=== PATIENT | male | born 1990 | race Caucasian/White ===

== ENCOUNTER 2022-11-08 09:53 | Emergency (ER) | payer OTHER ==
[~2022-11-08] VITALS: Ht 177.8 cm; Wt 63.0 kg
[2022-11-08] MEDS ORDERED: IV NS 0.9% 500 ML BAG IV ONE (10:30)
[2022-11-08 10:45] LABS: ALANINE AMINOTRANSFERASE 53 U/L (12-78); ALKALINE PHOSPHATASE 74 U/L (46-116); ASPARTATE AMINOTRANSFERASE 33 U/L (15-37); BILIRUBIN,DIRECT 0.2 mg/dL (0.0-0.2); BILIRUBIN,TOTAL 0.4 mg/dL (0.2-1.0); CALCIUM, SERUM 8.7 mg/dL (8.5-10.1); CARBON DIOXIDE 28 mmol/L (21-32); CHLORIDE 103 mmol/L (98-107); CREATININE 0.8 mg/dL (0.6-1.3); GLUCOSE 98 mg/dL (74-106); POTASSIUM 3.9 mmol/L (3.5-5.1); SODIUM SERUM 139 mmol/L (136-145); TOTAL PROTEIN, SERUM 7.7 g/dL (6.4-8.2); UREA NITROGEN, BLOOD 11 mg/dL (7-18)
[2022-11-08 10:48] LABS: ALCOHOL, BLOOD < 3 mg/dL (0-10); HEMOGLOBIN 12.6 g/dL (13.5-17.5)
[2022-11-08 10:51] LABS: BASOPHILS % (AUTO) 0.4 % (0.0-2.0); EOSINOPHILS % (AUTO) 0.2 % (0.0-6.0); HEMATOCRIT 38 % (39-51); LYMPHOCYTES # (AUTO) 1.1 K/uL (0.8-4.8); LYMPHOCYTES % (AUTO) 19.5 % (20.0-44.0); MEAN CORPUSCULAR HEMOGLOBIN 30 PG (26.0-33.0); MEAN CORPUSCULAR HGB CONC 33 g/dl (31.0-36.0); MEAN CORPUSCULAR VOLUME 90 fL (80-96); MONOCYTES # (AUTO) 0.1 K/uL (0.1-1.30); MONOCYTES % (AUTO) 2.4 % (2.0-12.0); NEUTROPHILS # (AUTO) 4.4 K/uL (1.8-8.9); NEUTROPHILS % (AUTO) 77.5 % (43.0-81.0); PLATELET COUNT (AUTO) 400 K/uL (150-450); RED BLOOD CELL COUNT(AUTO) 4.17 MIL/uL (4.5-6.0); RED CELL DISTRIBUTION WIDTH 13.8 % (11.5-15.0); WHITE BLOOD COUNT (AUTO) 5.7 K/uL (4.3-11.0)
[2022-11-08] MEDS ORDERED: LEVETIRACETAM (500MG) 500 MG in IV NS 0.9% 100 ML IV SCH (11:00)
[2022-11-08 13:23] VITALS: BP 112/53; TEMP 98; O2SAT 99
[2022-11-08 18:31] LABS: BARBITURATE, URINE NEGATIVE (NEGATIVE); CANNABINOID, URINE NEGATIVE (NEGATIVE); COCCAINE, URINE NEGATIVE (NEGATIVE); OPIATE, URINE NEGATIVE (NEGATIVE); PHENCYCLIDINE SCREEN,URINE NEGATIVE (NEGATIVE)
[2022-11-08 18:38] LABS: AMPHETAMINE, URINE POSITIVE (NEGATIVE); BENZODIAZEPINE, URINE POSITIVE (NEGATIVE)
== END 2022-11-08 13:23 ==
LOC: ER 10:31
DX: G40.909 Epilepsy, unspecified, not intractable, without status epilepticus (principal)
CPT/HCPCS: 99285; 96365; 96361; 70450; 85025; 80048; 80076; 36415; 80320; 80307; J7030; A4223; J1953; G0480

== ENCOUNTER 2022-11-08 14:07 | Inpatient (IN) | payer MEDICAID, OTHER ==
[~2022-11-08] VITALS: Ht 177.8 cm; Wt 63.0 kg
[2022-11-08] MEDS ORDERED: LORAZEPAM INJ 2 MG/ML VIAL ONE (15:25)
[2022-11-08 15:28] LABS: THYROID STIMULATING HORMONE 0.217 uIU/mL (0.358-3.74)
[2022-11-08 15:34] LABS: PHOSPHORUS 3.3 mg/dL (2.5-4.9)
[2022-11-08 15:35] LABS: MAGNESIUM 2.1 mg/dL (1.8-2.4)
[2022-11-08] MEDS ORDERED: HYDROCODONE/APAP 5/325MG TABLET PO PRN (16:00)
[2022-11-08] MEDS ORDERED: TEMAZEPAM 15 MG CAPSULE PO PRN (16:00)
[2022-11-08] MEDS ORDERED: ONDANSETRON HCL/PF 4 MG/2 ML VIAL IVP PRN (16:00)
[2022-11-08] MEDS ORDERED: ACETAMINOPHEN 325 MG TABLET PO PRN (16:00)
[2022-11-08] MEDS ORDERED: MAGNESIUM HYDROXIDE 30 ML UDC PO PRN (16:00)
[2022-11-08] MEDS ORDERED: HYDROCODONE/APAP 10/325MG TABLET PO PRN (16:00)
[2022-11-08] MEDS ORDERED: Z GUARD REMEDY 4 OZ OINT TP PRN (16:00)
[2022-11-08] MEDS ORDERED: LORAZEPAM INJ 2 MG/ML VIAL IV ONE (16:00)
[2022-11-08] MEDS ORDERED: IV 1/2NS 1000 ML 1,000 ML IV PRN (16:00)
[2022-11-08] MEDS ORDERED: MAG HYDROX/AL HYDROX/SIMETH 30 ML UDC PO PRN (16:00)
[2022-11-08] MEDS ORDERED: LORAZEPAM INJ 2 MG/ML VIAL IV PRN (16:00)
[2022-11-08] MEDS ORDERED: LEVETIRACETAM (500MG) 1,000 MG in IV NS 0.9% 100 ML IV SCH (17:00)
[2022-11-08 17:18] VITALS: BP 123/64; TEMP 98
[2022-11-08] MEDS ORDERED: OLANZAPINE 10 MG VIAL IM ONE (18:30)
[2022-11-08 20:00] VITALS: BP 123/64; TEMP 98; O2SAT 98
[2022-11-09] VITALS: BP 123/64; TEMP 98; O2SAT 98
[2022-11-09] MEDS ORDERED: LEVETIRACETAM (250 MG) 250 MG TABLET PO SCH (05:00)
[2022-11-09] MEDS ORDERED: PANTOPRAZOLE 40 MG TABLET.DR PO SCH (07:30)
== END 2022-11-09 08:05 | disposition left against medical advice (07) | DRG 53 ==
LOC: ER 14:08 → TELE1 16:20 → MEDSG1 18:38
PROVIDERS: ADMIT Nurse Practitioner Acute Care; ATTEND Nurse Practitioner Acute Care
PROC: 05H633Z Insertion of Infusion Device into Left Subclavian Vein, Percutaneous Approach (ICD-10-PCS; principal; 2022-11-08)
PROC: B547ZZA Ultrasonography of Left Subclavian Vein, Guidance (ICD-10-PCS; 2022-11-08)
DX: G40.909 Epilepsy, unspecified, not intractable, without status epilepticus (principal); D63.8 Anemia in other chronic diseases classified elsewhere; Z89.212 Acquired absence of left upper limb below elbow; Z89.221 Acquired absence of right upper limb above elbow
CPT/HCPCS: 36410; 36415; 83735-TC; 84100-TC; 84439-TC; 84443-TC; A4223; G0378; J1953; J2060; J3490; J7030